=== PATIENT | male | born 1970 | race Caucasian/White ===

== ENCOUNTER 2021-03-26 11:46 | Outpatient (CLI) | payer OTHER ==
[2021-03-26 12:55] LABS: INR-International Normal Ratio 1.9; Prothrombin Time 22.4 sec (12.0-14.7)
== END 2021-03-26 11:47 | disposition home or self-care (01) ==
LOC: MADLAB 11:46
DX: Z51.81 Encounter for therapeutic drug level monitoring (principal); Z95.2 Presence of prosthetic heart valve; Z79.01 Long term (current) use of anticoagulants
CPT/HCPCS: 36415; 85610

== ENCOUNTER 2021-05-14 13:31 | Outpatient (CLI) | payer OTHER ==
[2021-05-14 14:18] LABS: INR-International Normal Ratio 1.7; Prothrombin Time 20.3 sec (12.0-14.7)
== END 2021-05-14 13:32 | disposition home or self-care (01) ==
LOC: MADLAB 13:31
DX: Z51.81 Encounter for therapeutic drug level monitoring (principal); Z95.2 Presence of prosthetic heart valve; Z79.01 Long term (current) use of anticoagulants
CPT/HCPCS: 36415; 85610

== ENCOUNTER 2021-11-07 11:17 | Outpatient (CLI) | payer MEDICAID, OTHER ==
[2021-11-07 11:57] LABS: INR-International Normal Ratio 1.6; Prothrombin Time 19.2 sec (12.0-14.7)
== END 2021-11-07 11:18 | disposition home or self-care (01) ==
LOC: MADLAB 11:17
DX: Z48.812 Encounter for surgical aftercare following surgery on the circulatory system (principal); Z95.2 Presence of prosthetic heart valve
CPT/HCPCS: 36415; 85610

== ENCOUNTER 2021-11-26 09:52 | Outpatient (CLI) | payer MEDICAID ==
[2021-11-26 11:16] LABS: INR-International Normal Ratio 2.3
== END 2021-11-26 09:53 | disposition home or self-care (01) ==
LOC: MADLAB 09:52
DX: Z48.812 Encounter for surgical aftercare following surgery on the circulatory system (principal); Z95.2 Presence of prosthetic heart valve
CPT/HCPCS: 36415; 85610